=== PATIENT | male | born 1995 | race Caucasian/White ===

== ENCOUNTER 2021-06-03 17:04 | Emergency (ER) | payer SELFPAY ==
[~2021-06-03] VITALS: Ht 170.2 cm; Wt 68.2 kg
[2021-06-03 17:16] VITALS: BP 141/80; PULSE 119; TEMP 97.7
== END 2021-06-03 18:22 | disposition left against medical advice (07) ==
LOC: COL.ER 17:04
DX: R68.84 Jaw pain (principal); R07.89 Other chest pain; J45.909 Unspecified asthma, uncomplicated; Z86.16 Personal history of COVID-19